=== PATIENT | male | born 1990 | race Caucasian/White ===

== ENCOUNTER 2016-05-15 13:44 | Inpatient (IN) | payer OTHER ==
[~2016-05-15] VITALS: Ht 188 cm; Wt 88.5 kg
[2016-05-15 14:19] LABS: BASOPHILS % (AUTO) 0.5 % (0.0-2.0); EOSINOPHILS % (AUTO) 3.3 % (1.0-6.0); HEMATOCRIT 43.4 % (41-53); HEMOGLOBIN 14.2 g/dL (13.5-17.5); LYMPHOCYTES # (AUTO) 3.5 K/uL (1.0-4.8); LYMPHOCYTES % (AUTO) 39.9 % (22.0-44.0); MEAN CORPUSCULAR HEMOGLOBIN 28.2 pg (26.0-34.0); MEAN CORPUSCULAR HGB CONC 32.8 G/dL (31.0-37.0); MEAN CORPUSCULAR VOLUME 86 fL (80-100); MONOCYTES # (AUTO) 0.8 K/uL (0.1-1.0); MONOCYTES % (AUTO) 9.5 % (2.0-9.0); NEUTROPHILS # (AUTO) 4.1 K/uL (1.8-7.7); NEUTROPHILS % (AUTO) 46.8 % (40.0-70.0); PLATELET COUNT (AUTO) 393 K/uL (150-450); RED BLOOD CELL COUNT(AUTO) 5.04 MIL/uL (4.50-5.90); RED CELL DISTRIBUTION WIDTH 14.2 % (11.5-14.5); WHITE BLOOD COUNT (AUTO) 8.7 K/uL (4.5-11.0)
[2016-05-15 14:28] LABS: ANION GAP 6 mmol/L (8-16); CARBON DIOXIDE 31 mmol/L (22-29); CHLORIDE 105 mmol/L (98-107); CREATININE 1.15 mg/dL (0.60-1.30); GLOMERULAR FILTR. RATE CALC > 60 mL/min (>60); POTASSIUM 3.9 mmol/L (3.5-5.1); SODIUM SERUM 142 mmol/L (136-145); UREA NITROGEN, BLOOD 17 mg/dL (7-18)
[2016-05-15 14:34] LABS: ALANINE AMINOTRANSFERASE 35 U/L (12-78); ALBUMIN 4.1 g/dL (3.4-5.0); ASPARTATE AMINOTRANSFERASE 19 U/L (15-37); BILIRUBIN,TOTAL 0.2 mg/dL (0.1-1.0); TOTAL PROTEIN, SERUM 7.9 g/dL (6.4-8.2)
[2016-05-15] MEDS ORDERED: HALOPERIDOL 5 MG TABLET PO PRN (16:15)
[2016-05-15] MEDS ORDERED: ZOLPIDEM TARTRATE 10 MG TABLET PO PRN (16:15)
[2016-05-15] MEDS ORDERED: LORazepam 2 MG TABLET PO PRN (16:15)
[2016-05-15 19:23] VITALS: BP 142/80
[2016-05-15] MEDS ORDERED: INFLUENZA VIRUS VACCINE QVS 2016-17 (3YR+)/PF 60 MCG/0.5 ML SYRINGE IM ONE (19:45)
[2016-05-15] MEDS ORDERED: PNEUMOCOCCAL VACCINE POLYVALENT 0.5 ML VIAL [PPSV23] IM ONE (19:45)
[2016-05-16 01:24] VITALS: BP 136/80
[2016-05-16] MEDS ORDERED: NICOTINE 7 MG/24 HOUR PATCH TD SCH (09:00)
[2016-05-16 09:33] VITALS: BP 131/75
[2016-05-16] MEDS ORDERED: ALBUTEROL SULFATE HFA 90 MCG/PUFF 8 GM INHALER IH PRN (14:45)
[2016-05-16] MEDS ORDERED: IBUPROFEN 600 MG TABLET PO PRN (14:45)
[2016-05-16] MEDS ORDERED: MAG HYDROX/AL HYDROX/SIMETH ES 30 ML SUSPENSION UDCUP PO PRN (14:45)
[2016-05-16] MEDS ORDERED: LOPERAMIDE HCL 2 MG CAPSULE PO PRN (14:45)
[2016-05-16] MEDS ORDERED: ONDANSETRON HCL 4 MG TABLET PO PRN (14:45)
[2016-05-16] MEDS ORDERED: BACITRACIN 28.4 GM OINTMENT TP PRN (14:45)
[2016-05-16] MEDS ORDERED: ACETAMINOPHEN 325 MG TABLET PO PRN (14:45)
[2016-05-16] MEDS ORDERED: MAGNESIUM HYDROXIDE SUSPENSION 30 ML UDCUP PO PRN (14:45)
[2016-05-16] MEDS ORDERED: BENZOCAINE/MENTHOL LOZENGE MM PRN (14:45)
[2016-05-16] MEDS ORDERED: CloNIDine HCL 0.1 MG TABLET PO PRN (14:45)
[2016-05-16] MEDS ORDERED: PETROLATUM,WHITE 71 GM JELLY TP PRN (14:45)
== END 2016-05-16 14:45 | disposition home or self-care (01) | DRG 885 ==
LOC: EEVIPCON 13:45 → EMS 13:45 → B3A 19:00
PROVIDERS: ADMIT Psychiatry & Neurology Psychiatry; ATTEND Psychiatry & Neurology Psychiatry
DX: F31.9 Bipolar disorder, unspecified (principal); R45.851 Suicidal ideations; F12.90 Cannabis use, unspecified, uncomplicated; F10.20 Alcohol dependence, uncomplicated; G47.00 Insomnia, unspecified; F41.9 Anxiety disorder, unspecified
CPT/HCPCS: 99285; G0480